=== PATIENT | female | born 1975 | race Caucasian/White ===

== ENCOUNTER 2016-07-30 05:53 | Observation (INO) | payer OTHER ==
--- NOTE | ~2016-07-30 | CT16 ---
[facility] A Service of [facility] RADIOLOGY TEXT RESULTS PATIENT: BRIDGET KOO LOCATION: [facility] 579-01 : 75 UNIT #: [id number] AGE: [address]: Fay Ch MD SEX: F ORDER DR: [id number] [facility] [address]. [place], [place] [address] [id number] MR#: [id number] Acc #: [id number] NAME: BRIDGET KOO : 1975 SEX: F STUDY DATE/TIME: 07/30/2016 22:01 UNIT: [facility] ROOM: [facility] STUDY DESCRIPTION: CT Angio Chest for PE Attending Physician: Fay Ch M.D. Ordering Physician: Physician Non-Staff MEDICAL IMAGING REPORT This report is preliminary unless electronic signature is present EXAM CT chest with contrast, pulmonary arteriography protocol, 07/30/2016. HISTORY A 40-year-old female with 2-day history of fever, shortness of air, inspiratory chest pain and tachycardia. TECHNIQUE CT examination of the chest with IV contrast using pulmonary arteriography protocol. 3-D CTA images of the pulmonary arteries were reformatted in multiple planes. This CT exam was performed with one or more of the following radiation dose reduction techniques: automatic exposure control, adjustment of mA and/or kV according to patient size, and iterative reconstruction. FINDINGS No pulmonary embolism is demonstrated. Thoracic aorta is normal in caliber. Heart size normal. No pericardial effusion. Multifocal airspace consolidation is scattered throughout the periphery of the mid and lower lungs, greatest in the left lower lobe, lingula and posterior right lung base. Mild patchy focal airspace infiltrate in the medial right upper lobe. Pulmonary findings are compatible with multifocal infectious pneumonitis. Clinical correlation and followup recommended. There is no pleural effusion. Benign calcified lymph nodes in the left hilum. No suspicious thoracic adenopathy. Limited upper abdominal images are unremarkable. IMPRESSION 1. No evidence of pulmonary embolism. 2. Multifocal airspace consolidation throughout the mid and lower lungs [facility] A Service [facility] RADIOLOGY TEXT RESULTS PATIENT: BRIDGET KOO LOCATION: [facility] 579-01 : 75 UNIT #: [id number] AGE: [address]: Fay Ch MD SEX: F ORDER DR: as detailed above with more mild patchy airspace infiltrates in the right upper lobe medially. Multifocal infectious pneumonitis is likely. No pleural effusion. Dictated by... Adrian Herman M.D. THIS IS AN ELECTRONICALLY VERIFIED REPORT Adrian Herman M.D. at 07/31/2016 9:51 PM BRANDON/stephane TD: 07/31/2016 10:53 JOB #: [id number] MEDICAL IMAGING REPORT Page 1 of 1 COPY
--- NOTE | ~2016-07-30 | CR72 ---
[facility]. [facility] A Service of [facility] RADIOLOGY TEXT RESULTS PATIENT: BRIDGET KOO LOCATION: [facility] 579-01 : 75 UNIT #: [id number] AGE: [address]: DEANDRE CORTES MD SEX: F ORDER DR: [id number] [place] [id number] MR#: [id number] Acc #: [id number] NAME: BRIDGET KOO : 1975 SEX: F STUDY DATE/TIME: 07/30/2016 7:11 UNIT: [facility]OF ROOM: [facility] STUDY DESCRIPTION: CR Chest Single View Portable Attending Physician: Deandre Cortes M.D. Ordering Physician: Noe Mayo M.D. MEDICAL IMAGING REPORT This report is preliminary unless electronic signature is present. EXAM Portable chest, 07/30. INDICATION Shortness of air and chest pain that started at noon yesterday. FINDINGS AP portable chest was obtained. No comparison. Lung volumes are low. There is infiltrate or atelectasis in the bases and there is probably a trace amount of left pleural fluid. Cardiac and mediastinal contours are within normal limits. No pneumothorax. IMPRESSION Low-volume inspiration with infiltrate or atelectasis in both bases. There is also likely a left pleural effusion. Dictated by... Herb Metcalf Jr., M.D. THIS IS AN ELECTRONICALLY VERIFIED REPORT Herb Metcalf Jr., M.D. at 07/30/2016 3:53 PM LOI/jabier TD: 07/30/2016 10:54 JOB #: [id number] MEDICAL IMAGING REPORT Page 1 of 1
--- NOTE | ~2016-07-30 | HP ---
Unit #: [id number] #: [id number] Patient: BRIDGET KOO [id number] [place] [id number] [facility]. [place], [place] [address] [id number] MR#: [id number] NAME: BRIDGET KOO ROOM: 579 Age: 40 Sex: F Admission Date: 07/30/2016 : 1975 Attending Physician: Deandre Cortes M.D. HISTORY AND PHYSICAL CHIEF COMPLAINT Shortness of breath and chest pain. HISTORY OF PRESENT ILLNESS Patient is a 40-year-old female with a history of anxiety and the cervical cancer, status post cervical surgery, presented to the emergency room at the [facility] with the shortness of breath. The patient is a resident of [place] and visiting the friend here and started complaining of the shortness of breath and the chest pain, started yesterday around noontime. The pain is mainly pleuritic in nature and is under the right breast, associated with the shortness of breath. The patient denies any trauma. The patient has been admitted for the above reasons to rule out the PE. The patient's urine tox is positive for the opiates and the benzodiazepines. PAST MEDICAL HISTORY History of a cervical cancer, anxiety. PAST SURGICAL HISTORY History of cholecystectomy, appendectomy and cervical surgery. HOME MEDICATIONS She takes the Valium. ALLERGIES No known drug allergies. SOCIAL HISTORY Smokes one pack per day and denies any alcohol and illicit drug abuse. FAMILY HISTORY Patient's aunt from the clot in the heart. REVIEW OF SYSTEMS Fourteen-point review of symptoms performed and only pertinent positive findings as described above, remaining are negative. PHYSICAL EXAMINATION GENERAL APPEARANCE: On examination the patient is lying on a bed not in acute distress. VITAL SIGNS: Temperature is 100.2, pulse 112, respirations 28, blood pressure 139/66, sating 94% at room air. HEENT: Head atraumatic/normocephalic. Pupils equal, round and reacting to light and accommodation. Unit #: [id number] #: [id number] Patient: BRIDGET KOO NECK: Supple. LUNGS: Decreased air entry at the bases. HEART: Regular rate and rhythm. CHEST: Patient has a generalized tenderness on the right upper chest and back. ABDOMEN: Soft, positive bowel sounds. EXTREMITIES: No cyanosis. No clubbing. NEUROLOGIC: Awake, alert and oriented. No gross focal motor deficit. DIAGNOSTIC STUDIES LABORATORY DATA: WBC 11, hemoglobin 14.9, hematocrit 43.2, platelets 256, troponin less than 0.05, lactic acid is 1.4, sodium 133, potassium 4.4, chloride 102, bicarb 23, glucose 102, BUN 13, creatinine 0.9, AST 34, ALT 33, alkaline phosphatase 79, lipase is 19. Urine tox screen is positive for the benzodiazepines and opiates. UA shows 3+ blood. INR is 1.1. IMAGING: Chest x-ray shows low-volume inspiration with infiltrate or atelectasis in both bases. There is also likely left pleural effusion. ASSESSMENT 1. Chest pain, likely pleuritic in nature. 2. Anxiety. 3. Substance abuse. PLAN 1. Plan to admit the patient to the observation/telemetry. 2. Patient will have a CT of the chest as it was not able to be done in the [facility] ER because (1) was unable to put the line. 3. Will have the psych consult for the anxiety. 4. Will continue with the Ativan p.r.n. p.o. 5. Further recommendations will follow. Dictated by Freddie Bernal/joshua TD: 07/30/2016 16:55 JOB #: [id number] HISTORY AND PHYSICAL Page 1 of 1 X DEANDRE CORTES MD X HISTORY AND PHYSICAL
--- NOTE | ~2016-07-30 | EKG ---
PATIENT: BRIDGET KOO UNIT #: [id number] Ventricular Rate: 118 BPM Atrial Rate: 118 BPM P-R Interval: 164 ms QRS Duration: 70 ms Q-T Interval: 306 ms QTC Calculation(Bezet): 428 ms P [place]: 47 degrees Calculated R [place]: -4 degrees Calculated T [place]: 38 degrees Diagnosis Line: Sinus tachycardia Diagnosis Line: Possible Left atrial enlargement Diagnosis Line: Septal infarct , age undetermined Diagnosis Line: Abnormal ECG Diagnosis Line: No previous ECGs available Diagnosis Line: Confirmed by MARCO WOODARD MD ([id number]) on Diagnosis Line: 09/14/2016 3:50:09 PM INTERPRETING MD: VANCE MARR
[2016-07-30] MEDS ORDERED: DIAZEPAM (06:01)
[2016-07-30 07:32] LABS: BASOPHIL# 0.1 X10e3 (0-0.3); BASOPHIL% 0.5 % (0-2.5); EOSINOPHIL# 0.1 X10e3 (0-0.7); EOSINOPHIL% 0.8 % (0.0-7.0); HEMATOCRIT 43.2 % (35.0-45.0); HEMOGLOBIN 14.9 gm/dL (12.0-16.0); LYMPHOCYTE# 1.7 X10e3 (1.0-3.5); LYMPHOCYTE% 15.6 % (17.0-45.0); MEAN CELL VOLUME 92.5 FL (83-96); MEAN CORPUSCULAR HEMOGLOBIN 31.9 PG (28-34); MEAN CORPUSCULAR HGB CONC 34.5 g/dL (30-36); MEAN PLATELET VOLUME 7.7 FL (6.5-11.5); MONOCYTE# 0.7 X10e3 (0-1.0); MONOCYTE% 6.3 % (3.0-12.0); NEUTROPHIL# 8.4 X10e3 (1.5-7.1); NEUTROPHIL% 76.8 % (40-75); PLATELET COUNT 256 X10e3 (140-420); RED BLOOD COUNT 4.67 X10e (3.90-5.30); RED CELL DISTRIBUTION WIDTH 13.4 % (11.0-15.5)
[2016-07-30 07:40] LABS: DIFF IND NO
[2016-07-30 07:55] LABS: POC - CKMB <1.0 ng/mL (0.0-7.9); POC - TROPONIN <0.05 ng/mL (<=0.05)
[2016-07-30 08:17] LABS: URINE APPEARANCE CLEAR; URINE BILIRUBIN NEG (NEG); URINE BLOOD 3+ (NEG); URINE COLOR YELLOW; URINE GLUCOSE NEG (NORM); URINE KETONE NEG (NEG); URINE LEUKOCYTE ESTERASE NEG (NEG); URINE NITRATE NEG (NEG); URINE PROTEIN NEG (NEG); URINE SOURCE CLEAN CATCH; URINE UROBILINOGEN 0.2 MG/DL (NORM)
[2016-07-30 08:18] LABS: ALBUMIN SERUM 3.7 g/dL (3.5-5.0); BILIRUBIN, DIRECT 0.1 mg/dL (0.0-0.2); BILIRUBIN,INDIRECT 0.1 mg/dL (0.0-0.9); BILIRUBIN,TOTAL 0.2 mg/dL (0.2-2.0); BUN/CREATININE RATIO 14.44; CALCIUM SERUM 9.1 mg/dL (8.4-10.2); CREATININE SERUM 0.9 mg/dL (0.6-1.4); MICRO INDICATED? YES; POTASSIUM 4.4 mmol/L (3.5-5.1); PROTEIN TOTAL SERUM 8.1 g/dL (6.0-8.3)
[2016-07-30 08:28] LABS: AMPHETAMINE NEG (NEG); BARBITURATES NEG (NEG); BENZODIAZEPINES POS (NEG); COCAINE NEG (NEG); MARIJUANA NEG (NEG); OPIATES POS (NEG); TRICYCLIC ANTIDEPRESSANTS NEG (NEG); U METHADONE NEG (NEG)
[2016-07-30 08:33] LABS: CULTURE INDICATED? NO; URINE BACTERIA NEG (NEG); URINE RBC 0-2 /[HPF] (0-2); URINE SQUAMOUS EPITHELIAL CELL OCCAS /[HPF]; URINE WBC 0-2 /[HPF] (0-5)
[2016-07-30 08:36] LABS: INR 1.1
[2016-07-30] MEDS ORDERED: VALIUM10 MG PO (15:20)
[2016-07-31 07:17] LABS: BASOPHIL% 0.2 % (0-2.5); EOSINOPHIL% 0.4 % (0.0-7.0); HEMATOCRIT 38.1 % (35.0-45.0); LYMPHOCYTE# 1.5 X10e3 (1.0-3.5); MEAN CELL VOLUME 91.5 FL (83-96); MEAN CORPUSCULAR HEMOGLOBIN 31.1 PG (28-34); MEAN PLATELET VOLUME 8.5 FL (6.5-11.5); MONOCYTE# 0.7 X10e3 (0-1.0); MONOCYTE% 6.2 % (3.0-12.0); NEUTROPHIL# 9.4 X10e3 (1.5-7.1); NEUTROPHIL% 80.2 % (40-75); PLATELET COUNT 224 X10e3 (140-420); RED BLOOD COUNT 4.16 X10e (3.90-5.30); RED CELL DISTRIBUTION WIDTH 14.8 % (11.0-15.5); WHITE BLOOD COUNT 11.7 X10e3 (4.0-10.5)
[2016-07-31 07:23] LABS: DIFF IND NO
[2016-07-31 14:13] LABS: BUN/CREATININE RATIO 17.77; CALCIUM SERUM 8.5 mg/dL (8.4-10.2); CREATININE SERUM 0.9 mg/dL (0.6-1.4); POTASSIUM 3.8 mmol/L (3.5-5.1)
== END 2016-07-31 15:03 | disposition left against medical advice (07) ==
LOC: SED 05:53 → EDBD 09:29 → SEDOF 09:29 → C5C 09:29 → SED 09:29 → C5C 14:03 → SEDOF 15:01 → C5C 16:05 → SEDOF 16:05 → C5C 16:05
PROVIDERS: Emergency Medicine; Internal Medicine
DX: R07.89 Other chest pain (principal); F41.9 Anxiety disorder, unspecified; F19.10 Other psychoactive substance abuse, uncomplicated; Z85.41 Personal history of malignant neoplasm of cervix uteri; F17.200 Nicotine dependence, unspecified, uncomplicated; Z90.49 Acquired absence of other specified parts of digestive tract
CPT/HCPCS: 36415; 71010; 71275; 80048; 80076; 80307; 81003; 82553; 83605; 83690; 84484; 84703; 85025; 85610; 85730; 87040; 93005; 96372; 96374; 96375; 99285; G0378; J0456; J0696; J1650; J1885; Q9967